=== PATIENT | male | born 1970 | race Caucasian/White ===

== ENCOUNTER 2024-03-14 12:47 | Emergency (ER) | payer MEDICARE, OTHER ==
[~2024-03-14] VITALS: Ht 188 cm; Wt 117.3 kg
--- OUTSIDE RECORDS SUMMARY | 2024-03-14 12:48 | XMS ---
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 Evelyn has no Care Guidelines for this patient. [facility] VISIT COUNT (12 MO.) 1 [facility] TOTAL 1 NOTE: Visits indicate total known visits. ED/UCC VISIT TRACKING (12 MO.) 03/14/2024 12:48 [facility] [place] TYPE: Emergency COMPLAINT: - CHEST PAIN INPATIENT VISIT TRACKING (12 MO.) No inpatient visits to display in this time frame [email or web address]
[2024-03-14] MEDS ORDERED: NITROGLYCERIN 0.4 MG SUBL SL PRN (13:00)
[2024-03-14] MEDS ORDERED: ASPIRIN 81 MG CHEW PO ONE (13:00)
[2024-03-14] MEDS ORDERED: LYRICA100 MG PO (13:03)
[2024-03-14] MEDS ORDERED: ATORVASTATIN CA20 MG PO (13:04)
[2024-03-14] MEDS ORDERED: LISINOPRIL20 MG PO (13:04)
[2024-03-14] MEDS ORDERED: OMEPRAZOLE20 MG PO (13:05)
[2024-03-14] MEDS ORDERED: JARDIANCE25 MG PO (13:05)
[2024-03-14] MEDS ORDERED: VAZALORE81 MG PO (13:06)
[2024-03-14] MEDS ORDERED: TOPROL XL50 MG PO (13:07)
[2024-03-14] MEDS ORDERED: HYDROCODON-ACE1 EAC8 PO (13:07)
[2024-03-14] MEDS ORDERED: ARIPIPRAZOLE15 MG PO (13:08)
[2024-03-14] MEDS ORDERED: LANTUS100 UNITS/ SUB-Q (13:10)
[2024-03-14] MEDS ORDERED: TRULICITY1.5 MG/0.5 SUB-Q (13:11)
[2024-03-14 13:20] LABS: HEMATOCRIT 46.4 % (35.0-50.0); HEMOGLOBIN 15.5 g/dL (12.0-18.0); MCH 30.9 (27-36); MCHC 33.5 g/dl (30-36); MCV 92.3 fl (81-99); PLATELET COUNT 284 K/uL (140-440); RBC 5.03 M/ul (4.3-5.7); RDW 14.1 (10.5-15.0)
[2024-03-14 13:27] LABS: INR 1.05 (0.80-1.30); PROTIME 13.3 Sec (11.2-14.2)
[2024-03-14 13:35] LABS: BANDS, MANUAL DIFF 2; BASOPHILS, MANUAL DIFF 2; LYMPHOCYTES, MANUAL DIFF 23; MONOCYTES, MANUAL DIFF 3; NEUTROPHILS, MANUAL DIFF 70
[2024-03-14 13:43] LABS: ALBUMIN 3.4 g/dL (3.4-5.0); ALBUMIN/GLOBULIN RATIO 1.03 (1.1-2.4); ANION GAP 10.5 (7-21); BILIRUBIN, TOTAL 0.8 ng/dL (0.2-1.0); BUN/CREATININE RATIO 9.37 (6.0-28.6); CALCIUM 8.3 mg/dL (8.5-10.1); CREATININE, SERUM 0.96 mg/dL (0.70-1.30); MAGNESIUM 1.9 mg/dL (1.8-2.4); POTASSIUM 3.5 mmol/L (3.5-5.1); PROTEIN, TOTAL 6.7 g/dL (6.4-8.2)
[2024-03-14 15:20] LABS: AMPHETAMINES, URINE NEGATIVE (NEGATIVE); BARBITURATES, URINE NEGATIVE (NEGATIVE); BENZODIAZEPINE, URINE NEGATIVE (NEGATIVE); BUPRENORPHINE, URINE NEGATIVE (NEGATIVE); CANNABINOID, URINE NEGATIVE (NEGATIVE); COCAINE, URINE NEGATIVE (NEGATIVE); ECSTASY, URINE NEGATIVE (NEGATIVE); FENTANYL, URINE NEGATIVE (NEGATIVE); METHADONE, URINE NEGATIVE (NEGATIVE); OPIATES, URINE POSITIVE (NEGATIVE); OXYCODONE, URINE NEGATIVE (NEGATIVE); PHENCYCLIDINE, URINE NEGATIVE (NEGATIVE)
[2024-03-14] MEDS ORDERED: METHYLPREDNISOLO4 M1 PO (15:24)
[2024-03-14] MEDS ORDERED: TRAMADOL HCL50 MG PO (15:24)
[2024-03-14 15:42] VITALS: BP 173/105
--- NOTE | 2024-03-16 11:28 | EKG ---
[facility] [address] [facility] [place], [place] [address] Signed Normal sinus rhythm Normal ECG No previous ECGs available Confirmed by DANDRE POWELL MD ([id number]) on 03/16/2024 11:28:07 AM Electronically Signed By: DANDRE POWELL 03/16/24 1128 PATIENT NAME: GUALBERTORAFAEL Electrocardiogram DATE OF : 74 PHYSICIAN: DANDRE POWELL REPORT #: [id number] REPORT IS CONFIDENTIAL AND NOT TO BE RELEASED WITHOUT AUTHORIZATION
== END 2024-03-14 15:37 | disposition home or self-care (01) ==
LOC: ED 12:47
PROVIDERS: Family Medicine
DX: M94.0 Chondrocostal junction syndrome [Tietze] (principal); I10 Essential (primary) hypertension; E11.9 Type 2 diabetes mellitus without complications; Z79.82 Long term (current) use of aspirin; Z79.4 Long term (current) use of insulin; Z79.899 Other long term (current) drug therapy
CPT/HCPCS: 36415; 71045; 80053; 80307; 83735; 83880; 84484; 85025; 85379; 85610; 86140; 93005; 93010; 99285-25; A9270

== ENCOUNTER 2024-08-11 15:45 | Inpatient (IN) | payer MEDICARE, OTHER ==
[2024-08-11] VITALS (8 sets, daily range): BP systolic 103–116; BP diastolic 64–82
[~2024-08-11] VITALS: Ht 188 cm; Wt 111.7 kg
[~2024-08-11 15:45] MED LIST: ADULT ASPIRIN R81 MG PO; ARIPIPRAZOLE15 MG PO; ATORVASTATIN CA20 MG PO; HYDROCODON-ACE1 EAC8 PO; JARDIANCE25 MG PO; LANTUS100 UNITS/ SUB-Q; LISINOPRIL20 MG PO; LYRICA100 MG PO; METHYLPREDNISOLO4 M1 PO; OMEPRAZOLE20 MG PO; TOPROL XL50 MG PO; TRAMADOL HCL50 MG PO; TRULICITY1.5 MG/0.5 SUB-Q
--- OUTSIDE RECORDS SUMMARY | 2024-08-11 15:51 | XMS ---
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 [place] VISIT COUNT (12 MO.) [address] [place] [address] TOTAL 12 NOTE: Visits indicate total known visits. ED/C VISIT TRACKING (12 MO.) 08/11/2024 15:[address] [facility] [place] TYPE: Emergency COMPLAINT: - TROUBLE BREATHING 08/06/2024 15:00 [facility] [place] TYPE: Emergency DIAGNOSES: - Influenza due to other identified influenza virus with other respiratory manifestations - Influenza due to other identified influenza virus with unspecified type of pneumonia - flu 07/09/2024 08:36 [facility] [place] TYPE: Emergency DIAGNOSES: - Nondisplaced fracture of proximal phalanx of left lesser toe(s), initial encounter for closed fracture - LEFT FOOT INJURY 05/23/2024 17:02 [employer] [facility] [place] TYPE: Emergency DIAGNOSES: - Cervicalgia - Jaw pain - Other chronic postprocedural pain - Other intraoperative and postprocedural complications and disorders of the musculoskeletal system - JAW PAIN 04/28/2024 03:10 [facility] [place] TYPE: Emergency DIAGNOSES: - Hypoglycemia, unspecified - LOW BLOOD SUGAR 04/18/2024 21:31 [facility] [place] TYPE: Emergency DIAGNOSES: - Dysphagia, unspecified - General 03/14/2024 12:48 [facility] [place] TYPE: Emergency COMPLAINT: - CHEST PAIN DIAGNOSES: - Chest pain, unspecified - Chondrocostal junction syndrome [Tietze] - Essential (primary) hypertension - 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 - swaging machine operator (current) use of insulin - Other prison (current) drug therapy - Type 2 diabetes mellitus without complications 02/27/2024 13:33 [facility] [place] [facility]: Emergency DIAGNOSES: - Radiculopathy, cervical region - NECK AND SHOULDER PAIN 02/24/2024 13:08 [facility] [place] TYPE: Emergency DIAGNOSES: - Pain in left shoulder - Radiculopathy, cervical region - L SHOULDER PAIN 12/21/2023 22:44 [employer] [place] TYPE: Emergency DIAGNOSES: - Acute bronchitis, unspecified - Other chest pain - Chest Pain 10/29/2023 03:46 [facility] [place] TYPE: Emergency DIAGNOSES: - Bipolar disorder, unspecified - Foreign body sensation, throat - Insomnia, unspecified - Foreign body sensation, throat - SOB 10/28/2023 13:55 [facility] [place] TYPE: Emergency DIAGNOSES: - Cutaneous abscess, unspecified - EVERYTHING HURTS INPATIENT VISIT TRACKING (12 MO.) [facility]24 [facility] DIAGNOSES: - Arthrodesis status - Cervicalgia - Other cervical disc degeneration, unspecified cervical region - Radiculopathy, cervical region - Spinal stenosis, cervical region [email or web address]
[2024-08-11] MEDS ORDERED: SODIUM CHLORIDE 0.9% 1,000 ML IV PRN (16:15)
[2024-08-11] MEDS ORDERED: CEFTRIAXONE/SODIUM CHLORIDE 2 GM/100 ML PIGGYBACK IV ONE (16:15)
[2024-08-11] MEDS ORDERED: AZITHROMYCIN/DEXTROSE 500 MG/250 ML PIGGYBACK IV ONE (16:15)
[2024-08-11 16:21] LABS: HEMATOCRIT 49.2 % (35.0-50.0); HEMOGLOBIN 16.4 g/dL (12.0-18.0); MCHC 33.4 g/dl (30-36); MCV 92.8 fl (81-99); PLATELET COUNT 318 K/uL (140-440); RDW 14.2 (10.5-15.0)
[2024-08-11 16:25] LABS: PARTIAL THROMBOPLASTIN TIME 27.4 Sec (22.9-41.3)
[2024-08-11 16:26] LABS: INR 1.23 (0.80-1.30); PROTIME 14.8 Sec (11.2-14.2)
[2024-08-11 16:30] LABS: ALBUMIN 3.1 g/dL (3.4-5.0); ALBUMIN/GLOBULIN RATIO 0.55 (1.1-2.4); ANION GAP 12.6 (7-21); BILIRUBIN, TOTAL 1.3 ng/dL (0.2-1.0); BUN/CREATININE RATIO 11.17 (6.0-28.6); CALCIUM 9.4 mg/dL (8.5-10.1); CREATININE, SERUM 1.7 mg/dL (0.70-1.30); POTASSIUM 4.6 mmol/L (3.5-5.1); PROTEIN, TOTAL 8.7 g/dL (6.4-8.2)
[2024-08-11 16:38] LABS: BASOPHILS, MANUAL DIFF 1; LYMPHOCYTES, MANUAL DIFF 11; MONOCYTES, MANUAL DIFF 4; NEUTROPHILS, MANUAL DIFF 84
[2024-08-11] MEDS ORDERED: TIZANIDINE HCL2 MG PO (16:39)
[2024-08-11] MEDS ORDERED: NOREPINEPHRINE BITARTRATE 250 ML IV ONE (16:42)
[2024-08-11 17:00] LABS: BILIRUBIN, URINE NEGATIVE (negative); BLOOD/HGB, URINE NEGATIVE (Negative); KETONE, URINE NEGATIVE (Negative); LEUK ESTERASE, URINE NEGATIVE (negative); NITRITE, URINE NEGATIVE (negative)
[2024-08-11] MEDS ORDERED: NOREPINEPHRINE BITARTRATE 250 ML IV SCH (17:00)
[2024-08-11 17:19] LABS: INFLUENZA B NAA NEGATIVE (NEGATIVE); RESPIRATORY SYNCYTIAL VIR NAA NEGATIVE (NEGATIVE)
[2024-08-11] MEDS ORDERED: DEXTROSE 5% 1,000 ML IV PRN (17:30)
[2024-08-11] MEDS ORDERED: GLUCAGON,HUMAN RECOMBINANT 1 MG/ML VIAL SUB-Q PRN (17:30)
[2024-08-11] MEDS ORDERED: ACETAMINOPHEN 325 MG TAB PO PRN (17:30)
[2024-08-11] MEDS ORDERED: ondansetron HCL 4 MG/2 ML VIAL IV PRN (17:30)
[2024-08-11] MEDS ORDERED: DEXTROSE 50% 50 ML SYR IV PRN ×2 (17:30)
[2024-08-11] MEDS ORDERED: IBLOOD GLUCOSE TEST STRIP 1 EA TEST XX PRN (17:30)
[2024-08-11] MEDS ORDERED: LACTATED RINGER'S 1,000 ML IV SCH (17:30)
[2024-08-11] MEDS ORDERED: LISINOPRIL40 MG PO (18:11)
[2024-08-11] MEDS ORDERED: ALBUTEROL SULFATE 0.083% 3 ML VIAL INH PRN (18:45)
[2024-08-11 18:46] LABS: LACTIC ACID, BLOOD 1.1 mmol/L (0.4-2.0)
--- NOTE | 2024-08-11 19:13 | NUR ---
PATIENT ADMITTED TO CCU ROOM 127 AROUND 183 VIA STRETCHER. PT ON 5 MCG OF LEVOPHED UPON ARRIVAL AND BPs ARE >100 SYSTOLIC AND MAP >65. TITRATING THIS DOWN TO OFF BY 1854. LR AT 125 ML/HR STARTED. PATIENT HUNGRY AND PROVIDED WITH A SANDWICH BOX. PT C/O PAIN IN HIS LEFT PEC/CHEST AREA, RATING THIS A 8.5/10. PT STATES HIS COUGHING HAS BEEN BOTHERSOME AT HOME AND HE RECENTLY STARTED AN INHALER PRESCRIBED BY BASILIO WOLFE. PT REPORTS FINISHING HIS ANTIBIOTICS AT HOME THAT WERE ALSO PRESCRIBED. PT ORIENTED TO ROOM AND CALL LIGHT. URINAL AT BEDSIDE.
[2024-08-11] MEDS ORDERED: GUAIFENESIN 10 ML UNIT DOSE CUP PO PRN (19:45)
[2024-08-11] MEDS ORDERED: BENZONATATE 100 MG CAP PO PRN (19:45)
--- NOTE | 2024-08-11 19:50 | NUR ---
RECEIVED REPORT FROM DAY SHIFT RN. PATIENT IS RESTING IN BED WATCHING TV. PATIENT DENIES ANY NEEDS AT THIS TIME. CALL LIGHT IN REACH. IV INFUSING PER ORDER.
[2024-08-11] MEDS ORDERED: NICOTINE 14 MG/24 HR 1 EA TDSY TD SCH (20:00)
[2024-08-11] MEDS ORDERED: NICOTINE POLACRILEX 4 MG LOZENGE BUCCAL PRN (20:00)
[2024-08-11] MEDS ORDERED: HYDROCODONE/ACETA 5/325 TAB PO PRN (20:15)
--- NOTE | 2024-08-11 20:43 | NUR ---
Call light answered, patient ambulates to BR with 1PA for void and BM. IVF infusing WNL. Steady gait. Warm blankets provided. No needs at this time
[2024-08-11] MEDS ORDERED: IBLOOD GLUCOSE TEST STRIP 1 EA TEST VI SCH (21:00)
[2024-08-11] MEDS ORDERED: MELATONIN 3 MG TAB PO PRN (21:00)
[2024-08-11] MEDS ORDERED: OSELTAMIVIR PHOSPHATE 75 MG CAP PO SCH (21:00)
[2024-08-11] MEDS ORDERED: PREGABALIN 50 MG CAP PO SCH (21:00)
[2024-08-11] MEDS ORDERED: HEParin SOD (PORCINE) 5,000 UNIT/ML SDV SUB-Q SCH (21:00)
[2024-08-11] MEDS ORDERED: INSULIN LISPRO 100 UNIT/ML ML SUB-Q SCH (21:00)
--- NOTE | 2024-08-11 21:30 | NUR ---
PATIENT IS RESTING IN BED. PATIENT ASSEMENT COMPLETED. PATIENT REPORTS COUGH, PRN MEDICATION GIVEN PER ORDER. PATIENTS PM MEDS GIVEN PER ORDER. PATIENT PATRICIA ANY SOB. PATIENT DENIES ANY PAIN. PATIENT PROVIDED SNACK AND FRESH ICE WATER. PATIENT IS ON RA. PATIENT DENIES ANY FURTHER NEEDS. CALL LIGHT IN REACH.
--- NOTE | 2024-08-11 22:00 | NUR ---
PATIENT NOTED TO HAVE AN OXYGEN SATURATION OF 85%. PATIENT IS RESTING IN BED WITH EYES CLOSED, RR 17. PATIENT PLACED ON 2L VIA NC. PATIENT DENIES ANY SOB. NAD NOTED. NO FURTHER NEEDS NOTED. CALL LIGHT IN REACH.
--- NOTE | 2024-08-11 22:51 | NUR ---
PATIENT ASSISTED TO STAND AT THE BEDSIDE AND VOID. PATIENT ABLE TO VOID. PATIENT IS BACK IN BED RESTING. PATIENT DENIES ANY SOB. PATIENT REPORTS C/O A COUGH, PRN MEDICATION GIVEN PER ORDER. PATIENT REPORTS 7/10 PAIN FROM COUGHING, PRN PAIN MEDICATION GIVEN PER ORDER. PATIENT REMAINS ON 2L VIA NC. PATIENT PROVIDE FRESH ICE WATER AND SEVEN UP. PATIENT DENIES ANY FURTHER NEEDS. CALLL LIGHT IN REACH.
--- NOTE | 2024-08-11 23:34 | NUR ---
PATIENT ASSISTED TO STAND AT THE BEDSIDE AND VOID. PATIENT IS WILLIAM IN BED RESTING. RT IN ROOM TO INSTRUCT PATIENT ON ACAPELLA. RT TITRATED PATIENT TO 3L VIA NC. PATIENT DENIES ANY SOB. PATIENT DENIES ANY FURTHER NEEDS. CALL LIGHT IN REACH.
[2024-08-12] VITALS (16 sets, daily range): BP systolic 102–139; BP diastolic 54–98
--- NOTE | 2024-08-12 00:05 | NUR ---
PATIENT ASSISTED TO THE BR A SBA. PATIENT ABLE TO HAVE BM AND VOID. PATIENT IS BACK IN BED RESTING. PATIENT REMAINS ON 3L VIA NC. PATIENT DENIES ANY PAIN OR SOB. PATIENT PROVIDED FRESH ICE WATER AND BEDSIDE FAN. PATIENT DENIES ANY FURTHER NEEDS. CALL LIGHT IN REACH. IV INFUSING PER ORDER.
--- NOTE | 2024-08-12 02:18 | NUR ---
PATIENT CALLED AND REPORTS PAIN IN LEFT UPPER CHEST FROM COUGHING, PRN PAIN AND COUGH MEDICATION GIVEN PER ORDER. PATIENT REMAINS ON 3L VIA NC. PATIENT DENIES ANY SOB. PATIENT PROVIDED FRESH ICE WATER AND SANDWICH BOX. PATIENT DENIES THE NEED TO USE THE BR. PATIENT DENIES ANY FURTHER NEEDS. CALL LIGHT IN REACH. IV INFUSING PER ORDER.
[2024-08-12] MEDS ORDERED: LIDOCAINE HCL 4% 1 EACH PATCH TD SCH (03:00)
--- NOTE | 2024-08-12 03:17 | NUR ---
PATIENT ASSISTED TO STAND AT THE BEDSIDE. PATIENT ABLE TO VOID. PATIENT IS BACK IN BED RESTING. PATIENT REMAINS ON 3L VIA NC. PATIENT DENIES ANY SOB. PATIENTS IV INFUSING PER ORDER. PATIENT REPORTS IMPROVEMENT IN PAIN IN HIS LEFT UPPER CHEST. PATIENT COINTUES TO RATE PAIN ON LEFT UPPER CHEST AT A 5/10, LIDOCAINE PATCH APPLIED PER ORDER. WAMR PACK APPLIED TO LEFT UPPER CHEST. PATIENT DENIES ANY FURTHER NEEDS. CALL LIGHT IN REACH.
--- NOTE | 2024-08-12 04:23 | NUR ---
PATIENT IS RESTING IN BED WITH EYES CLOSED, RR 18. NAD NOTED. CALL LIGHT IN REACH. IV INFUSING PER ORDER.
[2024-08-12 05:35] LABS: BASOPHILS 0.5 % (0-2); EOSINOPHILS 0.3 % (0-6); HEMATOCRIT 42.2 % (35.0-50.0); HEMOGLOBIN 14.3 g/dL (12.0-18.0); LYMPHOCYTES 8.8 % (24-44); MCH 31.1 (27-36); MCHC 33.8 g/dl (30-36); MCV 92.1 fl (81-99); MONOCYTES 9.5 % (0-12); NEUTROPHILS 80.9 % (39-80); PLATELET COUNT 307 K/uL (140-440); RBC 4.59 M/ul (4.3-5.7); RDW 14.1 (10.5-15.0)
[2024-08-12 05:48] LABS: ANION GAP 13.5 (7-21); BUN/CREATININE RATIO 15.53 (6.0-28.6); CALCIUM 8.5 mg/dL (8.5-10.1); CREATININE, SERUM 1.03 mg/dL (0.70-1.30); MAGNESIUM 2.1 mg/dL (1.8-2.4); POTASSIUM 4.5 mmol/L (3.5-5.1)
--- NOTE | 2024-08-12 05:50 | NUR ---
PATIENT INCONT OF URINE AND ABLE TO VOID IN URINAL. BEDDING CHANGED AND BED ABTH COMPLETED. PATIENT IS BACK IN BED RESTING. PATIENT DENIES ANY SOB. PATIENT REMAINS ON 3L VIA NC. PATIENT REPORTS 4/10 PAIN IN HIS LEFT UPPER CHEST WARTM PACK PROVIDED. PATIENT DENIES ANY FURTHER NEEDS AT THIS TIME. CALL LIGHT IN REACH. IVV INFUSING PER ORDER.
--- NOTE | 2024-08-12 06:16 | NUR ---
PATIENT PROVIDED FRESH ICE WATER, LEMONADE, AND SF SEVEN UP. PATIENT PROVIDED SNACK. PATIENT RATES PAIN IN HIS LEFT UPPER CHEST A 7/10, PRN MEDICATION GIVEN PER ORDER. PATIENT REPORTS DISCOMFORT FROM A COUGH, PRN MEDICATION GIVEN PER ORDER. PATIENT DENIES ANY FURTHER NEEDS. CALL LIGHT IN REACH. IV INFUSING PER ORDER. PATIENT REMAINS ON 3L VIA NC.
[2024-08-12] MEDS ORDERED: CEFEPIME HCL/D5W 2 GM/100 ML PIGGYBACK IV SCH (07:48)
[2024-08-12] MEDS ORDERED: VANCOMYCIN HCL 3,000 MG in DEXTROSE 5% 500 ML IV ONE (08:00)
--- NOTE | 2024-08-12 08:15 | NUR ---
IN PATIENT'S ROOM FOR BREAKFAST, VITALS AND SERVICE ADVISOR. PT STARTED ON NEW ABX COURSE - CEFEPIME, FLAGYL AND VANCO. PT AFEBRILE THIS AM. PT ON 2 L NC UPON ENTRY TO ROOM BUT SP02 IS 100%. TITRATED DOWN AND THEN TAKEN OFF AND NOW MAINTAINING SP02 ON ROOM AIR. LUNG SOUNDS SHOW EXP WHEEZING IN UPPER LOBES AND CRACKLES IN LOWER LOBES. PT'S MAIN COMPLAINT IS PECTORAL PAIN IN THE LEFT SIDE. LIDOCAINE PATCH ON AND WARM PACKS HAVE BEEN PROVIDED. PT STATES THIS IS SO FAR THE ONLY THING THAT HAS BEEN HELPING THE PAIN. PRN NORCO AND TYLENOL ALSO AVAILABLE. PHYS THERAPY NOW IN ROOM WORKING WITH PATIENT.
[2024-08-12] MEDS ORDERED: CEFTRIAXONE/SODIUM CHLORIDE 2 GM/100 ML PIGGYBACK IV SCH (09:00)
[2024-08-12] MEDS ORDERED: AZITHROMYCIN 250 MG TAB PO SCH (09:00)
[2024-08-12] MEDS ORDERED: VANCOMYCIN PER PHARMACY PROTOCOL IV SCH (09:00)
--- NOTE | 2024-08-12 10:35 | NUR ---
PATIENT ALERT AND ORIENTED IN RECLINER. LIVES IN SINGLE LEVEL HOUSE, 1 STEP TO GET INSIDE. HIS SISTER WAS HIS ROOMMATE, BUT SHE RECENTLY SO HE NOW LIVES ALONE. HE HAS NO DME. PATIENT DRIVES AT BASELINE. STATES HE GOES TO [facility] IN [place] FOR MEDICAL NEEDS. CALLED [facility], HIS PCP IS LAYLA GRANT PA-C. HE ALSO SEES AN PET CAREGIVER IN [place], DR. MARGARET CARRERO. PATIENT STATES HE GETS FOOD STAMPS, $292/MONTH. HE ALSO UTILIZES THE FOOD PANTRY ON OCCASION. STATES HIS ELECTRICITY IS LIKELY TO BE SHUT OFF. HE HAS APPLIED TO [employer] FOR ASSISTANCE AND HE HAS BEEN APPROVED FOR UTILITY ASSISTANCE. NO OTHER CM NEEDS AT THIS TIME.
--- NOTE | 2024-08-12 11:01 | NUR ---
WARM PACK PROVIDED TO PATIENT. PT ALSO GIVEN HIGH PROTEIN ENSURE AND JUICE/SUGAR FREE SODA. PT REPORTS BEING VERY HUNGRY OVER THE LAST SEVERAL DAYS. PT DENIES FURTHER NEEDS. REMAINS ON ROOM AIR AT THIS TIME.
[2024-08-12] MEDS ORDERED: PHARMACY RENAL DOSE ADJUSTMENT 1 DOSE MISC PO SCH (12:00)
--- NOTE | 2024-08-12 12:13 | NUR ---
UR CLINICAL REVIEW: 2 MN FOR VERSALUS: MEETS INPT CRITERIA FOR PNEUMONIA AND HYPOTENSION MEDICARE INPT 08/11/24 @ 3196 ORDER MATCHES REG NO AUTH REQUIRED PER MEDICARE GUIDELINES DISCHARGE TO HOME WHEN STABLE
--- NOTE | 2024-08-12 12:27 | NUR ---
NOOON ASSESSMENT COMPLETE. PT STARTING TO EXPECTORATE THICK YELLOW SPUTUM. SAMPLE COLLECTED AND SENT FOR CULTURE. PT USING ACAPELLA. PT SITTING AT BEDSIDE AND EATING LUNCH AT THIS TIME. WILL CONTINUE TO MONITOR. IN REMAINS ON ROOM AIR.
[2024-08-12] MEDS ORDERED: metroNIDAZOLE/SODIUM CHLORIDE 500 MG/100 ML PIGGYBACK IV SCH (14:00)
--- NOTE | 2024-08-12 14:05 | EKG ---
[facility] [address] [facility] [place] [address] Signed Normal sinus rhythm Normal ECG When compared with ECG of 14-MAR-2024 12:47, ST elevation now present in Anterior leads Confirmed by Denis Parker MD ([id number]) on 08/12/2024 2:05:15 PM Electronically Signed By: DENIS PARKER DO 08/12/24 1405 PATIENT NAME: RAFAEL BURCIAGA Electrocardiogram DATE OF : 74 PHYSICIAN: DENIS PARKER DO REPORT #: [id number] REPORT IS CONFIDENTIAL AND NOT TO BE RELEASED WITHOUT AUTHORIZATION
[2024-08-12] MEDS ORDERED: TRAMADOL HCL50 MG PO (14:29)
[2024-08-12] MEDS ORDERED: ARIPiprazole 10 MG TAB PO SCH (14:45)
[2024-08-12] MEDS ORDERED: PANTOPRAZOLE SODIUM 40 MG TABEC PO SCH (14:45)
--- NOTE | 2024-08-12 18:30 | NUR ---
PATIENT WANTING TO GET UP TO HAVE A BM. INTO [facility] BUT UNABLE TO HAVE A BM. PT NOW BACK IN BED.
--- NOTE | 2024-08-12 19:20 | NUR ---
SHIFT REPORT RECEIVED. PATIENT RESTING IN BED WATCHING TV. CALL LIGHT IN REACH.
--- NOTE | 2024-08-12 20:16 | NUR ---
PATIENT REPORTS RETURN OF LEFT SIDE MUSCLE PAIN WITH COUGH. PRN TYLENOL AND COUGH MEDS PROVIDED. WARM PACKET PROVIDED FOR COMFORT. PATIENT HAS LIDOCAIN PATCH IN PLACE. PATIENT ALSO PROVIDED A SNACK AND PROTEIN DRINK; HE REPORTS HE DID NOT EAT MUCH DINNER BECAUSE HIS THROAT WAS SORE. PATIENT TOLERATING ROOM AIR. VS STABLE. SITTING UP IN BED WATCHING TV. CALL LIGHT IN REACH.
--- NOTE | 2024-08-12 20:45 | NUR ---
PATIENT PROVIDED SCHEDULED MEDS PER ORDER. IV SITE IN LEFT HAND DC DUE TO PAIN WITH FLUSHING. IV SITE IN RIGHT HAND RE-DRESSED. PATIENT CONTINUES TO REPORT COUGH WITH SMALL AMOUNTS OF RED SPUTUM. TOLERATING ROOM AIR. LUNG SOUNDS ARE COARSE ON THE RIGHT UPPER LOBE, CLEAR AND DIM THROUGHOUT OTHER AREAS.
[2024-08-12] MEDS ORDERED: INSULIN GLARGINE-YFGN 100 UNIT/ML ML SUB-Q SCH (21:00)
[2024-08-12] MEDS ORDERED: LIDOCAINE PATCH REMOVAL 1 EA TD SCH (21:00)
[2024-08-12] MEDS ORDERED: VANCOMYCIN HCL 1,750 MG in DEXTROSE 5% 500 ML IV SCH (21:00)
--- NOTE | 2024-08-12 22:00 | NUR ---
PATIENT CONTINUES TO REPORT PAIN IN HIS LEFT RIB AREA. PATIENT FEELS THAT HE MIGHT HAVE "CRACKED SOMETHING" FROM COUHGING. SITE APPEARS WNL AND NOTHING FEELS OUT OF PLACE ON PALPATION. WARM BLANKET PROVIDED FOR COMFORT. PRN PAIN MEDS AND MELATONIN PROVIDED PER REQUEST. ASSISTED PATIENT TO POSITION FOR COMFORT IN THE BED.
--- NOTE | 2024-08-12 23:13 | NUR ---
2 OF 3 IV ABX FINISHED; SITES WNL X2. PATIENT RESTING IN BED WITH HOB ELEVATED AND EYES CLOSED. LIGHTS DIMMED TO ENCOURAGE REST. CALL LIGHT IN REACH.
--- NOTE | 2024-08-12 23:47 | NUR ---
ASSISTED PATIENT TO UNTANGLE MONITOR CORDS. PATIENT UP TO BEDSIDE TO USE THE URNAL. PATIENT REPORTS GETTING "OVER HEATED". TEMP IN ROOM ADJUSTED. ORAL TEMP WNL. PATIENT HAS PERSONAL FAN IN USE. NO OTHER NEEDS AT THIS TIME. CALL LIGHT IN REACH.
[2024-08-13] VITALS (11 sets, daily range): BP systolic 111–135; BP diastolic 72–100
--- NOTE | 2024-08-13 01:49 | NUR ---
PATIENT PROVIDED PRN COUGH MEDS. PATIENT CONTINUES TO HAVE A PRODUCTIVE HARSH COUGH.
[2024-08-13 03:24] LABS: PROCALCITONIN 0.83 ng/mL (())
--- NOTE | 2024-08-13 04:16 | NUR ---
PATIENT RESTING IN BED. EYES CLOSED. BREATHING EVEN AND NONLABORED. VS STABLE. CALL LIGHT IN REACH.
--- NOTE | 2024-08-13 05:04 | NUR ---
PATIENT BEDDING CHANGED DUE TO SWEATING. PATIENT'S ORAL TEMP WNL. ROOM TEMP ADJUSTED. PATIENT CONTINUES TO COUGH FREQUENTLY AND REPORTS LEFT SIDED RIB/CHEST WALL PAIN WITH COUGH. PRN PAIN MEDS PROVIDED.
[2024-08-13 05:40] LABS: HEMATOCRIT 42.2 % (35.0-50.0); HEMOGLOBIN 14.2 g/dL (12.0-18.0); MCHC 33.7 g/dl (30-36); MCV 92.1 fl (81-99); PLATELET COUNT 346 K/uL (140-440); RBC 4.58 M/ul (4.3-5.7); RDW 14.4 (10.5-15.0)
[2024-08-13 05:51] LABS: BUN/CREATININE RATIO 15.62 (6.0-28.6); CALCIUM 8.8 mg/dL (8.5-10.1); CREATININE, SERUM 0.96 mg/dL (0.70-1.30)
[2024-08-13 06:13] LABS: EOSINOPHILS, MANUAL DIFF 1; LYMPHOCYTES, MANUAL DIFF 6; MONOCYTES, MANUAL DIFF 3; NEUTROPHILS, MANUAL DIFF 90
--- NOTE | 2024-08-13 06:30 | NUR ---
IV ABX STARTED PER ORDER. PATIENT APPEARS TO BE RESTING IN BED, EYES CLOSED. DOES NOT WAKE WITH RN IN ROOM. VS STABLE. BREATHING APPEARS EVEN AND NONLABORED; RR 18-20. TOLERATING ROOM AIR. CALL LIGHT IN REACH.
--- NOTE | 2024-08-13 07:38 | NUR ---
report from Litzy reyna, pt eyes closed hr 90, room air sats 93%, call light in reach and white board updated.
[2024-08-13] MEDS ORDERED: SODIUM CHLORIDE 1 GM TAB PO ONE (09:00)
--- NOTE | 2024-08-13 09:27 | NUR ---
PT in working with patient. call light in reach - denies needs.
--- NOTE | 2024-08-13 10:23 | NUR ---
DR HERE IN UNIT, NOTIFIED OF + BC AROBIC GRAM + IN 1/4 BOTTLES. PT RESTING IN ROOM. CALL LIGHT IN REACH.
[2024-08-13] MEDS ORDERED: VENTOLIN HFA18 GM INH (11:43)
[2024-08-13] MEDS ORDERED: BASAGLAR K100 UNIT/1 SUB-Q (11:49)
--- NOTE | 2024-08-13 12:21 | NUR ---
pt amb to br standby assist with this rn, up to sink to brush teeth, linen changed. pt given po tylenol and tessalon for cough and pain in ribs. pt enc to cough up phlem. offered chair pt declined went backl to bed. 95% room air.
--- NOTE | 2024-08-13 13:55 | NUR ---
PT NOT AVAILABLE FOR VISIT. PROVIDED PRAYER.
[2024-08-13] MEDS ORDERED: METOPROLOL SUCCINATE 50 MG TABCR PO SCH (14:51)
--- NOTE | 2024-08-13 15:17 | NUR ---
REPORT RECEIVED FROM SHIMON WHEELER. PATIENT SITTING UP IN BED. DENIES NEEDS AT THIS TIME.
--- NOTE | 2024-08-13 16:13 | NUR ---
ASSESSMENT CHARTED. PATIENT RESTING WHILE SITTING UP IN BED. COMPLAINS OF "STUFFY NOSE" BUT DECLINES NEED FOR MEDICATION. FRESH BOX OF TISSUES PROVIDED WELL WATER AND SODA. PATIENT REPORTS HE IS READY FOR DINNER. REMINDED HIM IT WILL BE HERE SOON. DENIES OTHER NEEDS AT THIST TIME. PHARMACIST IN ROOM TO SEE PATIENT. CALL LIGHT IN REACH.
[2024-08-13] MEDS ORDERED: IBUPROFEN600 MG PO (16:17)
--- NOTE | 2024-08-13 16:17 | NUR ---
MED REC COMPLETE
--- NOTE | 2024-08-13 17:06 | NUR ---
BLOOD SUGAR CHECK COMPLETED. NO SS COVERAGE NEEDED AT THIS TIME. URINAL EMPTIED FOR 200ML DARK YELLOW URINE. PATIENT'S SISTER AT BEDSIDE VISITING. DENIES NEEDS OR CONCERNS AT THIS TIME. CALL LIGHT IN REACH.
--- NOTE | 2024-08-13 17:48 | NUR ---
PATIENT OOBTBR TO ATTEMPT BOWEL MOVEMENT. NO BM BUT LARGE AMOUNT OF FLATUS PASSED. BACK TO BED. CALL LIGHT IN REACH.
--- NOTE | 2024-08-13 17:58 | NUR ---
PATIENT REPORTS PAIN TO LEFT CHEST THAT IS "TENDER" IN NATURE. MEDICATED WITH NORCO PER EMAR. PATIENT SITTING UP IN BED WHILE WATCHING TV. CALL LIGHT IN REACH.
--- NOTE | 2024-08-13 19:30 | NUR ---
SHIFT REPORT RECEIVED. PATIENT SITTING UP ON EDGE OF BED. CONTINUES TO REPORT HARSH COUGH. SMALL AMOUNT OF RED SPUTUM NOTED. PATIENT TOLERATING ROOM AIR. DENIED NEEDS AT THIS TIME. CALL LIGHT IN REACH.
--- NOTE | 2024-08-13 20:17 | NUR ---
PATIENT PROVIDED PRN COUGH MEDS AND SCHEDULED MEDS. PATIENT PROVIDED SUPPLIES TO WASH HIS FACE AND PERFORM NIGHTLY CARES. PATIENT IS STEADY ON HIS FEET AND ABLE TO PERFORM HIS OWN CARE. URNAL EMPTIED. ROOM CLEANED OF ALL EXTRA SUPPLIES AND GARBAGE. PATIENT PROVIDED FRESH ICE WATER AND DIET SODA PER REQUEST. NO OTHER NEEDS AT THIS TIME. CALL LIGHT IN REACH.
--- NOTE | 2024-08-13 21:54 | NUR ---
patient provided scheduled meds. iv sites wnl x2; iv abx infusing. patient vs stable. tolerating room air. continues to have cough. fresh water provided. patient denied other needs. call light in reach.
--- NOTE | 2024-08-13 22:05 | NUR ---
PATIENT REPORTS ITCHING AT IV SITE WITH VANCO INFUSING. INFUSION STOPPED. DRESSING ON IV SITE IS WET. IV SITE DC. SKIN IS BLANCHABLE, RED AND SLIGHTLY SWOLLEN. FLOAT RN CALLED TO ASSIST WITH NEW IV SITE.
--- NOTE | 2024-08-13 23:00 | NUR ---
NEW IV SITE X2 ESTABLISHED BY LAYLA ROBINS AND GAURI ROBINS. IV ABX RESTARTED. PATIENT PROVIDED PRN PAIN MEDS BY CORKY ROBINS.
[2024-08-13] MEDS ORDERED: HYALURONIDASE, HUMAN RECOMB. 150 UNIT/ML VIAL SUB-Q ONE (23:45)
--- NOTE | 2024-08-14 | NUR ---
IV SITE INFILTRATION REPORTED TO . ORDERS RECEIVED FOR HYLENEX TREATMENT. ADMINISTERED BY LAYLA FRIED RN.
--- NOTE | 2024-08-14 01:00 | NUR ---
PATIENT RESTING IN BED. TOLERATING ROOM AIR. VS STABLE. PATIENT CONTINUES TO HAVE HARSH COUGH. PAIN IN LEFT SIDE IS TOLERABLE AFTER RECEIVING PRN PAIN MEDS. PATIENT DENIED OTHER NEEDS. IV SITES WNL X2. CALL LIGHT IN REACH.
[2024-08-14 03:03] VITALS: BP 130/80
--- NOTE | 2024-08-14 03:04 | NUR ---
PATIENT DIAPHORETIC, REPORTS GETTING "TOO HOT" AFTER A COUGHING EPISODE. PATIENT BEDDING CHANGED. ORAL TEMP WNL. PATIENT PROVIDED ICE WATER. DENIED OTHER NEEDS. VS STABLE.
[2024-08-14 04:00] VITALS: BP 114/74
--- NOTE | 2024-08-14 04:27 | NUR ---
PATIENT PROVFIDED PRN TYLENOL FOR HEADACHE. PATIENT CONTINUES TO HAVE FREQUENT COUGH WITH SPUTUM PRODUCTION. PATIENT DENIED PRN COUGH MEDS. TOLERATING ROOM AIR. VS STABLE.
[2024-08-14 05:31] LABS: BASOPHILS 0.7 % (0-2); EOSINOPHILS 1.2 % (0-6); HEMATOCRIT 40.4 % (35.0-50.0); HEMOGLOBIN 13.8 g/dL (12.0-18.0); MCH 31.1 (27-36); MCHC 34.1 g/dl (30-36); MCV 91.3 fl (81-99); MONOCYTES 8.7 % (0-12); NEUTROPHILS 84.4 % (39-80); PLATELET COUNT 422 K/uL (140-440); RBC 4.42 M/ul (4.3-5.7); RDW 14.3 (10.5-15.0)
[2024-08-14 05:47] LABS: ANION GAP 15.7 (7-21); BUN/CREATININE RATIO 15.78 (6.0-28.6); CALCIUM 8.2 mg/dL (8.5-10.1); CREATININE, SERUM 0.95 mg/dL (0.70-1.30); MAGNESIUM 1.8 mg/dL (1.8-2.4); POTASSIUM 3.7 mmol/L (3.5-5.1)
--- NOTE | 2024-08-14 06:00 | NUR ---
SCHEDULED ABX STARTED. IV SITES WNL. PATIENT RESTING WITH EYES CLOSED IN THE BED. VS STABLE.
[2024-08-14 06:01] VITALS: BP 103/67
--- NOTE | 2024-08-14 07:37 | NUR ---
report from maintenance technician 3rd shift, this rn in room for assessment, pt reports feeling better, void 600 ml dark urine in urinal, replaced tele leads for pt, denies other pain or needs. call light and liquids in reach. temp 98.
[2024-08-14] MEDS ORDERED: SODIUM CHLORIDE 1 GM TAB PO ONE (08:00)
[2024-08-14 08:39] LABS: VANCOMYCIN, TROUGH 12.1 ug/mL (5.0-20.0)
[2024-08-14] MEDS ORDERED: ENOXAPARIN SODIUM 40 MG/0.4 ML SYR SUB-Q SCH (09:00)
--- NOTE | 2024-08-14 09:07 | NUR ---
ATTEMPTING TO TAKE PT FOR A SHOWER. DURING AMBULATION PT BECAME NAUSEAS. BROUGHT BACK TO ROOM, BEGAN VOMITTING. PT GIVEN PRN ZOFRAN AND PLACED IN POSITION OF COMFORT, PRIMARY RN NOTIFIED
[2024-08-14] MEDS ORDERED: VANCOMYCIN HCL 1,500 MG in DEXTROSE 5% 500 ML IV SCH (10:00)
--- NOTE | 2024-08-14 10:31 | NUR ---
rn assist pt to wc to go to xray dept. for testing, denies needs.
--- NOTE | 2024-08-14 11:03 | NUR ---
PT NOT AVAILABLE FOR VISIT. PROVIDED PRAYER.
--- NOTE | 2024-08-14 11:41 | NUR ---
pt at side of bed with feet on floor - wants to go home. pt in with pt. iv checked left arm wnl flushes well.
--- NOTE | 2024-08-14 12:01 | NUR ---
pt amb in room, up in chair for lunch. call light in reach.
[2024-08-14 12:02] VITALS: BP 123/77
--- NOTE | 2024-08-14 12:25 | NUR ---
rn assisted pt from chair to bed, left iv sl - flushes well. call light in reach.
--- NOTE | 2024-08-14 12:40 | NUR ---
Spoke with Poncho. He is really wanting to go home. He states he needs his shirt and his keys and believes his sister has them. He denies needs to go home, he will call his cousin Kary when he is ready to dc. We discussed he is most likely not ready to discharge as he has been very ill. He agrees he should stay longer. Not needs for dc at this time.
--- NOTE | 2024-08-14 13:38 | NUR ---
in room to talk to pt about transfer to higherlevel of care - pt concerned about home and dog. pt worried about his sister not coming in.
--- NOTE | 2024-08-14 13:45 | NUR ---
CALL PLACED TO [facility] TRANSFER [place] FOR POSSIBLE TRANSFER
--- NOTE | 2024-08-14 13:50 | NUR ---
rn at bedside with pt and he reports his sister is bringing him clothes this afternoon - rn got impression that pt was not understanding plan of care and relaying that to his sister. pt called sister on speaker phone and rn and patient spoke with sister javy - pt and rn explained new plan for trsf to a fidel level of care. sister javy said pt just called and told her he was going home to bring clotes to get him. sister frusterated with pt and thankful for call. rn let javy know that pt was very worried about his dog - she assured pt that dog is well taken care of and rn let her know he was ok to see his service dog if she could bring it in. Javy said she was not able to bring dog. Javy agrees and urges brother to get a higher level of care. she said to call her at any time. she was encouraged to call pt or for updates if she had questions. pt frusterated and seems to not understand importance of getting to a speacialist - will re enforce. pt wants all 3 of current iv out - this rn removed all 3 intact, attempt x2 to place in left arm unsuccessful. placed 20 g in right forearm. pt resting in bed.
[2024-08-14 15:28] VITALS: BP 120/84
--- NOTE | 2024-08-14 15:54 | NUR ---
pt dc via strecher to [facility] with ambulance crew after report given. 2lnc 91% all pt belingings with him and his family called by dispatch supervisor.
--- NOTE | 2024-08-14 17:06 | NUR ---
report called to [phone] [facility] room [address] slime richards md, nurse lorne given verbal report.
[2024-08-14] MEDS ORDERED: ARIPiprazole 10 MG TAB PO SCH (21:00)
== END 2024-08-14 15:55 | disposition short-term general hospital (02) | DRG 871 ==
LOC: ED 15:45 → CCU 17:32
PROVIDERS: Emergency Medicine; Student in an Organized Health Care Education/Training Program; ADMIT Student in an Organized Health Care Education/Training Program; ATTEND Student in an Organized Health Care Education/Training Program
PROC: 3E03329 Introduction of Other Anti-infective into Peripheral Vein, Percutaneous Approach (ICD-10-PCS; principal; 2024-08-12)
PROC: 3E033XZ Introduction of Vasopressor into Peripheral Vein, Percutaneous Approach (ICD-10-PCS; 2024-08-12)
DX: A41.02 Sepsis due to Methicillin resistant Staphylococcus aureus (principal); J10.08 Influenza due to other identified influenza virus with other specified pneumonia; J15.212 Pneumonia due to Methicillin resistant Staphylococcus aureus; R65.21 Severe sepsis with septic shock; N17.9 Acute kidney failure, unspecified; J21.9 Acute bronchiolitis, unspecified; A41.89 Other specified sepsis; F39 Unspecified mood [affective] disorder; M54.50 Low back pain, unspecified; G89.29 Other chronic pain; I10 Essential (primary) hypertension; E78.5 Hyperlipidemia, unspecified; K21.9 Gastro-esophageal reflux disease without esophagitis; E11.42 Type 2 diabetes mellitus with diabetic polyneuropathy; Z88.1 Allergy status to other antibiotic agents; Z79.82 Long term (current) use of aspirin; Z79.899 Other long term (current) drug therapy; Z79.4 Long term (current) use of insulin
CPT/HCPCS: 36415; 51701; 71045; 71250; 71260; 74176; 80048; 80053; 80202; 81003; 83605; 83735; 85025; 85610; 85730; 87070; 87205; 87502; 93005; 93010; 94640; 94668; 97161; 97530; 99285-25; A9270; J0456; J0692; J0696; J1644; J1650; J1815; J2405; J3370; J3473; J7060; J7121; Q9967; U0002

== ENCOUNTER 2025-05-10 20:04 | Emergency (ER) | payer MEDICARE, OTHER ==
[~2025-05-10] VITALS: Ht 188 cm; Wt 118.0 kg
[~2025-05-10 20:04] MED LIST changes: +BASAGLAR K100 UNIT/1 SUB-Q; +IBUPROFEN600 MG PO; +LISINOPRIL40 MG PO; +TIZANIDINE HCL2 MG PO; +VENTOLIN HFA18 GM INH
[2025-05-10] MEDS ORDERED: HYDROCODONE/ACETA 5/325 TAB PO ONE (20:45)
[2025-05-10 22:00] VITALS: BP 171/99
== END 2025-05-10 22:11 | disposition home or self-care (01) ==
LOC: ED 20:04
DX: S16.1XXA Strain of muscle, fascia and tendon at neck level, initial encounter (principal); X58.XXXA Exposure to other specified factors, initial encounter; I10 Essential (primary) hypertension; E11.9 Type 2 diabetes mellitus without complications; Z88.0 Allergy status to penicillin; Z88.1 Allergy status to other antibiotic agents; Z79.899 Other long term (current) drug therapy
CPT/HCPCS: 70450; 72125; 99283-25